=== PATIENT | female | born 1985 | race Caucasian/White ===

== ENCOUNTER 2022-01-30 10:35 | Emergency (ER) | payer MEDICAID, SELFPAY ==
[2022-01-30 10:35] VITALS: BP 201/120; PULSE 80; RESP 16; TEMP 36.6; O2SAT 97; BMI 29.5
[2022-01-30] MEDS: Acetaminophen 500 MG Tablet 1000 MG PO (10:56)
[2022-01-30] MEDS: predniSONE 20 MG Tablet 40 MG PO (10:56)
[2022-01-30] MEDS: cycloBENZAPRine HCl 10 MG Tablet PO (10:56)
--- NOTE | 2022-01-30 11:00 | EDS_ITS ---
HPI History of Present Illness Chief Complaint: Back Informant: patient Narrative Narrative: Patient presents multiple complaints. Primary complaint today back pain at work yesterday. Lifting 25 pounds turn when she felt sudden pain right back rating down her right leg to the back of her knee. No loss of bowel or bladder control since. No weakness. History of disc bulging with sciatica symptoms 15 years ago improved after 3 months of physical therapy. No medications taken. Allergies to sulfa. History of hypertension, on hydrochlorothiazide lisinopril unknown on her dosing however she ran out a month ago. No PCP was refilled through the ED previously. Denies headache chest pains abdominal pain nausea vomiting. Also states that pruritic rash bilateral arms this morning no lip or tongue swelling no change in soaps or detergent. No new medications. No known exposures. Prior similar symptoms: Yes and With Prior Back Pain PFSH PFS Medical History HTN (hypertension) Home Medications cyclobenzaprine 10 mg tablet 10 mg PO TID PRN muscle spasm #12 tabs 01/30/22 [Rx Last Taken Unknown] lisinopril 20 mg-hydrochlorothiazide 12.5 mg tablet 1 tab PO DAILY #30 tabs 01/30/22 [Rx Last Taken Unknown] prednisone 20 mg tablet 40 mg PO DAILY #10 tabs 01/30/22 [Rx Last Taken Unknown] Allergy/AdvReac Type Severity Reaction Status Date / Time Sulfa (Sulfonamide Allergy Rash Verified 01/30/22 10:37 Antibiotics) Social History Smoking Status: Current every day smoker tobacco type: cigarettes ROS ROS ED Constitutional Constitutional ED: Denies chills, fever(s) or sweats Eyes Eyes: Denies change in vision ENT ENT ED: Denies dysphagia or sore throat Cardiovascular Cardiovascular: Denies chest pain, leg edema, palpitations or racing heartbeat Respiratory/Chest Respiratory/Chest: Denies cough, dyspnea or dyspnea on exertion Gastrointestinal Gastrointestinal: Denies abdominal pain, diarrhea, nausea or vomiting Genitourinary Genitourinary ED: Denies dysuria, hematuria or urinary frequency Musculoskeletal Musculoskeletal: Reports back pain; Denies extremity pain or neck pain Integumentary Reports rash; Denies wounds Neurologic Neurologic: Denies headache(s), paresthesias or weakness EXAM Physical Exam Const Vital Signs: 01/30/22 10:35 Temperature 97.8 F Temperature Source Temporal Pulse Rate 80 Respiratory Rate 16 Blood Pressure 201/120 H Blood Pressure Mean 147 Pulse Ox 97 Oxygen Delivery Method Room Air Positive well nourished and well developed General Appearance ED: well developed and NAD HEENT Reports moist mucous membranes HEENT Narrative: No lip or tongue swelling airway patent. normocephalic and atraumatic Eyes PERRL, EOMs intact bilaterally and conjunctivae normal General Eye ED: Yes normal appearance of both eyes Neck no lymphadenopathy and supple General: Negative for tenderness Chest Wall Chest: Negative for tenderness Resp normal respiratory effort and normal air movement Effort and Inspection: symmetric chest movement; Negative for respiratory distress Cardio regular rate, regular rhythm and no murmurs Peripheral Pulses: pulses 2+ throughout GI normal to inspection, nondistended, normoactive bowel sounds and non-tender Palpation: Negative for guarding or rebound tenderness present Back/Spine no CVA tenderness Back/Spine Narrative: No midline tenderness there is reproducible right paralumbar tenderness straight leg test was negative 1+ patellar reflex on the right 2+ on the left. Strength is intact. Neuro vas intact distally. Extremity normal to inspection General Extremety ED: Negative for edema or tenderness General Extremity: Negative for edema Neuro oriented x3 and no sensory deficits noted Sensorium / Orientation: awake and alert Skin no wounds Skin Narrative: Bilateral arms with erythematous patches, excoriations noted no urticarial lesions no indurations. No drainage. Skin intact. MDM MDM MDM Narrative Medical decision making narrative: Patient presents sciatica symptoms no cauda equina symptoms she is able to ambulate. With her elevated blood pressure, she is asymptomatic, we will avoid NSAIDs. Tylenol and Flexeril started she is tolerated and done well Flexeril in the past. Appropriate work restrictions along with occupational health follow- up. She is also started on prednisone for both her back and her nonspecific rash. She is give her a dose of lisinopril hydrochlorothiazide in ED along with 1 month prescription she is given follow-up with the clinic as an outpatient along with occupational health. All questions were answered. Discharge Plan Triage Chief Complaint: Back Other Complaint: Hypertension Rash ED Provider: Coleman Trujillo Dx/Rx/DC Orders Clinical Impression: Sciatica of right side, Hypertension, Rash and nonspecific skin eruption Instructions: Self-Care for Skin Rashes, ED High Blood Pressure Hypertension, ED Sciatica Prescriptions: New cyclobenzaprine 10 mg tablet 10 mg PO TID PRN (Reason: muscle spasm) Qty: 12 0RF prednisone 20 mg tablet 40 mg PO DAILY Qty: 10 0RF Rx Instructions: start 01/31/22 lisinopril-hydrochlorothiazide 20-12.5 mg tablet 1 tab PO DAILY Qty: 30 0RF Primary Care Provider: NOT,DEFINED Referrals: Christine Matthews [NON-STAFF] - 1 Week NOT,DEFINED [Primary Care Provider] - Activity Restrictions/Additional Instructions: Please follow-up with occupational health for your back. Follow-up with the clinic for continued management of your blood pressure and future refills. Disposition Disposition: Home, Self Care
[2022-01-30] MEDS: hydroCHLOROthiazide 25 MG Tablet PO (11:04)
[2022-01-30] MEDS: Lisinopril 20 MG Tablet PO (11:04)
== END 2022-01-30 11:05 | disposition home or self-care (01) ==
PROVIDERS: Emergency Provider Emergency Medicine; Visit Provider Emergency Medicine
DX: M54.31 Sciatica, right side (principal); I10 Essential (primary) hypertension; R21 Rash and other nonspecific skin eruption; F17.210 Nicotine dependence, cigarettes, uncomplicated
CPT/HCPCS: 99284